=== PATIENT | female | born 1985 | race Caucasian/White ===

== ENCOUNTER 2021-05-13 16:23 | Emergency (ER) | payer OTHER ==
[2021-05-13] MEDS ORDERED: ZOFRAN ODT 4 MG4 MG PO (18:11)
[2021-05-13] MEDS ORDERED: PERCOCET 5-3251 EACH PO (18:11)
== END 2021-05-13 20:12 | disposition home or self-care (01) ==
LOC: ER1 16:23
DX: S82.851A Displaced trimalleolar fracture of right lower leg, initial encounter for closed fracture (principal); F17.200 Nicotine dependence, unspecified, uncomplicated; W01.0XXA Fall on same level from slipping, tripping and stumbling without subsequent striking against object, initial encounter; Y93.9 Activity, unspecified; Y92.830 Public park as the place of occurrence of the external cause
CPT/HCPCS: 27767; 73600; 73610; 96374; 96375; 99152; 99283; J1170; J1885; J2270; J2405; J2704